=== PATIENT | female | born 1955 | race Caucasian/White ===

== ENCOUNTER 2023-02-10 14:44 | Outpatient (CLI) | payer MEDICARE, SELFPAY ==
[2023-02-10 15:14] LABS: Kit Draw Collected
== END 2023-02-10 14:45 | disposition home or self-care (01) ==
LOC: ANHGOSHLAB 14:46
PROVIDERS: PCP Family Medicine; Visit Provider Family Medicine
DX: R35.0 Frequency of micturition (principal)
CPT/HCPCS: 36415

== ENCOUNTER 2024-09-09 09:19 | Outpatient (CLI) | payer MEDICARE, SELFPAY ==
--- NOTE | ~2024-09-09 | MM_ITS ---
EXAMINATION: MM screening donna BI w dipak HISTORY: Screening TECHNIQUE: Craniocaudal and mediolateral oblique 3-D tomosynthesis images were obtained and synthetic 2-D images were generated. CAD analysis was submitted and interpreted. COMPARISON: No prior mammogram is available for comparison at this institution. BREAST PARENCHYMAL COMPOSITION: Not dense: There are scattered areas of fibroglandular density. FINDINGS: There is no evidence of suspicious mass, calcification, or architectural distortion to sugg est malignancy in either breast. There has been no suspicious interval change. IMPRESSION: 1. No mammographic evidence of malignancy. 2. Recommend routine screening mammography in one year. BI-RADS Category 1: Negative Reviewed, dictated and finalized at location A.
--- NOTE | ~2024-09-09 | DEXA_ITS ---
Bone Density Report Name: JOSE ALEJANDRO SHEA Age: 69 Sex: Female Ethnicity: White Date of : 1955 Indication: postmenopausal; screening for osteoporosis; Referring Provider: LEIA JONES Study: Bone densitometry was performed. Exam Date: September 09, 2024 Accession number: [id number] Bone Density: Region BMD T-score Z-score Classification AP Spine(L1-L4) 0.967 -0.7 1.5 Normal Femoral Neck (Left) 0.646 -1.8 0.1 Osteopenia Total Hip (Left) 0.754 -1.5 0.0 Osteopenia Femoral Neck (Right) 0.682 -1.5 0.4 Osteopenia Total Hip (Right) 0.739 -1.7 -0.1 Osteopenia Total Hip Mean 0.746 -1.6 -0.1 Osteopenia World Health Organization criteria for BMD impression classify patients as: Normal (T-score at or above -1.0), Osteopenia (T-score between -1.0 and -2.5), or Osteoporosis (T-score at or below -2.5). 10-year Fracture Risk(1): Major Osteoporotic Fracture 10% Hip Fracture 2.1% Reported Risk Factors: [place] (), Neck BMD=0.646, BMI=21.8 (1) FRAX(R) Version 3.08. Fracture probability calculated for an untreated patient. Fracture probability may be lower if the patient has received treatment. Clinical Information Provided by Patient: Has used the following medications: Vitamin D Patient maximum height was 63 Menopause Age: 46 Drinks caffeinated beverages Onset of menses at age 11 Number of children 4 Impression: The patient has low bone mass, based on the Left Femoral Neck T-score. The patient has an estimated ten-year risk of hip fracture of 2.1% and an estimated ten-year risk of major fracture of 10%, based on the WHO FRAX algorithm. Discussion: BONE DENSITY IS LOW AT ONE OR MORE SKELETAL SITES. This patient's lowest T-score is low at one or more skeletal sites. It meets the World Health Organization's (WHO) criteria for ?low bone mass? (T-score between -1.0 and -2.5). The patient's 10-year risk of fracture as calculated by FRAX is less than the threshold where pharmacological therapy is recommended by the National Osteoporosis Foundation (NOF). However, all treatment decisions require clinical judgment and consideration of individual patient factors, including patient preferences, comorbidities, previous drug use, risk factors not captured in the FRAX model (e.g., frailty, falls, vitamin D deficiency, increased bone turnover, interval significant decline in bone density) and possible under or overestimation of fracture risk by FRAX. The patient should follow a healthful lifestyle (good nutrition with adequate calcium and vitamin D, and appropriate weight-bearing exercise). Follow-Up: Consider repeating this study in 2 to 3 years to reassess this patient's status, or sooner if there is some new clinical indication. Reported by: RUBINA on 09/09/2024 10:01:00 AM. Reviewed, dictated and finalized at location A.
--- OUTSIDE RECORDS SUMMARY | 2024-09-10 11:29 | XMS_ITS | Continuity of Care Document ---
Author Organization [facility] Address [address] [place] [address] [address] [place] [address] Phone Care Team Providers Care Pace Analyst Name Role Phone Brian Bucio Unavailable Unavailable Procedures Procedure Date Office/outpatient Visit, Est Eye Exam Established Pt Advance Directives Directive Yes / No Effective Date File Name No Information Encounters Encounter Description Practice Location Reason(s) For Visit Diagnoses Date Provider Providers Copied on Encounter Office/outpa tient Visit, Est [facility], [id number] [place] [address] [address], [place], [place], [id number], [place] tel:[phone] [facility] No Information Oct-1 5-200 8 Krishnasamy Brian. [facility] [address], [place], [place], [facility], [place]. tel:[phone] [facility], [address] [place] [address] [address], [place], [place], [id number], [place] tel:[phone] [facility] No Information Oct-0 2-200 8 Pearson OD Hari. [address] [facility] , [address], [place], [address], [place]. tel:[phone] [facility], [address] [place] [address] [address], [place], [place], [id number], [place] tel:[phone] [facility] No Information Sep-0 4-200 8 Krishnasamy Brian. [address] [facility] [place] [address], [place], [place], [facility], [place]. tel:[phone] Referring Provider: Blaze Bertrand OD, [address] [facility], [place], [address]. tel:[phone] Family History Family Member Type Diagnosis Age [...]
--- OUTSIDE RECORDS SUMMARY | 2024-09-10 11:29 | XMS_ITS | Clinical Summary ---
Author Organization [facility] Address [address] [place] [address] Care Team Providers Care Business And Marketing Teacher Name Role Phone Tiarra Cooper MD Primary Care Provider [phone] Source Comments [facility],non-owned Affiliates and Associated Physician Practices is amultiple site organization consisting of ambulatory clinics and hospital sitesin [place], [place], [place] and [place]. This disclosure is being madepursuant to the Care Everywhere program and may not contain all information available regarding this patient. Last updated 18.[facility] Allergies Active Allergy Reactions Criticality Noted Date Comments Penicillins Rash Medium 08/09/2015 Sulfa Drugs Rash Medium 08/09/2015 Medications * Be aware that medications may not be up to date on this document. Alwaysverify current medications with the patient. levothyroxine (SYNTHROID) 88 MCG tablet Take 1 tablet by mouth daily before breakfast 30 tablet 5 8 Active alendronate (FOSAMAX) 70 MG tablet 1 tablet every 7 days before meal 15 tablet 3 8 Active metoprolol succinate XL 24hr (TOPROL XL) 25 MG tablet Take 1 tablet by mouth once daily 90 tablet 3 8 Active vitamin D, ergocalciferol, (DRISDOL) 33681 UNITS capsule Take 1 capsule by mouth every 7 days 8 capsule 8 Active levothyroxine (SYNTHROID) 88 MCG tablet TAKE 1 TABLET BY MOUTH ONCE DAILY BEFORE BREAKFAST 30 tablet 5 9 Active Active Problems Problem Noted Date Diagnosed Date Hypothyroid Osteoporosis HTN (hypertension) Family History Medical History Relation Name Comments NC<55(male) Father Diabetes Maternal Grandfather Cancer - Breast Maternal Grandmother NC<65(female) Maternal Grandmother Cancer - Prostate Maternal Uncle Diabetes Mother Hypertension Mother Cancer - Breast Paternal Aunt Cancer - Other Paternal Uncle Hypertension Sister 2 Relation Name Status Comments Brother Alive Father (Age 84) heart emi ck Maternal Grandfather Maternal Grandmother Maternal Uncle Mother Alive Paternal Aunt Paternal Uncle Sister 1 Alive Sister 2 Social History Tobacco Use Types Packs/Day Years Used Date Smoking Tobacco: Never Smokeless Tobacco: Never Alcohol Use Standard Drinks/Week Comments Yes 5 (1 standard drink = 0.6 oz pur e alcohol) Comments No Sex and Gender Information Value Date Recorded Sex Assigned at Not on file Legal Sex 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 Gender Identity Not on file Sexual Orientation Not on file 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 Not on file Not on file Not on file Last Filed Vital Signs Vital Sign Reading Time Taken Comments Blood Pressure 110/80 02/01/2018 10:32 AM CDT Pulse 70 02/01/2018 10:32 AM CDT Temperature 36.6 C (97.9 F) 02/01/2018 10:32 AM CDT Respiratory Rate 18 02/01/2018 10:32 AM CDT Oxygen Saturation 99% 02/01/2018 10:32 AM CDT Inhaled Oxygen Concentration - - Weight 51.4 kg (113 lb 6.4 oz) 02/01/2018 10:32 AM CDT Height 160 cm (5' 2.99 ) 02/01/2018 10:32 AM CDT Body Mass Index 20.09 02/01/2018 10:32 AM CDT Plan of Treatment Health Maintenance Due Date Last Done Comments BONE DENSITY TESTING 1955 COLOGUARD (AGES 45-75) - COL ON CA SCREENING [address] COLONOGRAPHY - COLON CA SCREENING 1955 FIT - COLON CA SCREENING 1955 FLEX SIG - COLON CA SCREENING 1955 DTAP/TDAP/TD VACCINES (1 - Tdap) 02/07/1972 PNEUMOCOCCAL VACCINE 50+ (1 of 1 - PCV) 2003 ZOSTER VACCINE (1 of 2) 2003 MAMMOGRAM 12/01/2018 12/01/2016 (Declined) LIPID TESTING 02/04/2023 02/04/2018, 04/28/2017, 10/20/2015 COVID-19 VACCINE ( - 2023-2 5 season) 2024 DEPRESSION SCREENING 05/11/2024 INFLUENZA VACCINE (Season Ended) 2025 COLONOSCOPY - COLON CA SCREENING 12/01/2026 12/01/2016 (Declined) Colorectal Cancer Screening 12/01/2026 Respiratory Syncytial Virus (RSV) Vaccine Pt: or over 60 yrs (1 - 1-dose 75+ series) 02/07/2028 HEPATITIS C SCREENING Completed 02/04/2018 HEPATITIS B VACCINE Aged Out No longe r eligible based on patient's age to complete this topic HIB VACCINE Aged Out No longer eligi ble based on patient's age to complete this topic HPV VACCINE Aged Out No longer eligi ble based on patient's age to complete this topic MENINGOCOCCAL (Group B) VACCINE SHARED DECISION-MAKING Aged Out No longer eligible based on patient's age to complete this topic MENINGOCOCCAL GROUPS A/C/Y/W VACCINE Aged Out No longer eligible b ased on patient's age to complete this topic Procedures Procedure Name Priority Date/Time Associated Diagnosis Comments LIPID PROFILE 02/04/2018 7:41 AM CDT HEPATITIS C AB W/RFLX TO HCV RNA QN PCR 02/04/2018 7:41 AM CDT from Last 3 Months or Most Recently Relevant to Health Maintenance Results * HEPATITIS C AB W/RFLX TO HCV RNA QN PCR (02/04/2018 7:41 AM CDT) Hepatitis C Antibody NON-REACTI VE NON-REACT KERRY [facility] Signal to Cut-Off 0.01 <1.00 [facility] Comment: Test Performed at: [facility] [address] [place] [address] TEJA BELL DO,MPH 02/04/2018 7:41 AM CDT 02/04/2018 7:43 AM CDT us Tiarra Cooper MD LAB - CHEMISTRY ORDERABLES [facility] [address] [place] [address] * LIPID PROFILE (02/04/2018 7:41 AM CDT) Cholesterol 184 <200 mg/dL [facility] HDL Cholesterol 66 >50 mg/dL [facility] Triglycerides 104 <150 mg/dL [facility] LDL Calculated 98 mg/dL (calc) [facility] Comment: Reference range: <100 Desirable range <100 mg/dL for primary prevention; <70 mg/dL for patients with CHD or diabetic patients with > or = 2 CHD risk factors. LDL-C is now calculated using the Ramy-Florencio calculation, which is a validated novel method providing better accuracy than the Friedewald equation in the estimation of LDL-C. Ramy SS et al. SRINATH. 2013;310(45): 4045-8124 (http://education.[employer].ID90T/faq/GFQ009) CHOL/HDLC RATIO 2.8 <5.0 (calc) [facility] Non HDL Cholesterol 118 <130 mg/dL (calc) [facility] Comment: For patients with diabetes plus 1 major ASCVD risk factor, treating to a non-HDL-C goal of <100 mg/dL (LDL-C of <70 mg/dL) is considered a therapeutic option. Test Performed at: [facility] [address] [place] [address] TEJA BELL DO,MPH 02/04/2018 7:41 AM CDT 02/04/2018 7:43 AM CDT Tiarra Cooper MD LAB - CHEMISTRY ORDERABLES [facility] [address] [place] [address] from Last 3 Months or Most Recently Relevant to Health Maintenance Insurance [employer] Care Teams Business And Marketing Teacher Relationship Specialty [place] [id number] [address] PCP - General Internal Medicine 08/09/15
== END 2024-09-09 09:20 | disposition home or self-care (01) ==
LOC: ANHIMG 09:22
PROVIDERS: PCP Family Medicine; Visit Provider Family Medicine
DX: Z12.31 Encounter for screening mammogram for malignant neoplasm of breast (principal); N95.9 Unspecified menopausal and perimenopausal disorder; M85.852 Other specified disorders of bone density and structure, left thigh; M85.851 Other specified disorders of bone density and structure, right thigh
CPT/HCPCS: 77063; 77067; 77080

== ENCOUNTER 2025-02-22 17:22 | Emergency (ER) | payer MEDICARE, SELFPAY ==
--- OUTSIDE RECORDS SUMMARY | 2008-02-23 09:30 | XMS_ITS | Continuity of Care Document ---
Author Organization [facility] Address [address] [place] [address] [address] [place] [address] Phone Care Team Providers Care Director Of Agronomy Name Role Phone Brian Bucio Unavailable Unavailable Procedures Procedure Date Office/outpatient Visit, Est Eye Exam Established Pt Advance Directives Directive Yes / No Effective Date File Name No Information Encounters Encounter Description Practice Location Reason(s) For Visit Diagnoses Date Provider Providers Copied on Encounter Office/outpa tient Visit, Est [facility], [id number] [place] [address] [address], [place], [place], [id number], [place] tel:[phone] [facility] No Information Oct-1 5-200 8 Krishnasamy Brian. [facility] [address], [place], [place], [facility], [place]. tel:[phone] [facility], [address] [place] [address] [address], [place], [place], [id number], [place] tel:[phone] [facility] No Information Oct-0 2-200 8 Pearson OD Hari. [address] [facility] , [address], [place], [address], [place]. tel:[phone] [facility], [address] [place] [address] [address], [place], [place], [id number], [place] tel:[phone] [facility] No Information Sep-0 4-200 8 Krishnasamy Brian. [address] [facility] [address], [place], [address], [place]. tel:[phone] Referring Provider: Blaze Bertrand OD, [address] [facility], [place], [address]. tel:[phone] Family History Family Member Type Diagnosis Age At Onset No Information Payers Payer name Insurance type Covered republican ID Authoriza tion(s) No Information Social History Type Description Quantity Date Captured Comments Sex Female Smoking Status No Information Chief Complaint And Reason For Visit No Information Reason For Referral Reason For Referral No Information History Of Present Illness Encounter Date Complaint History Of Prese nt Illness No Information Functional Status Date Functional Assessmen t No Information Instructions Date Instruction Additional Infor mation No Information Assessments Type Assessment Date No Information Patient Care Teams Name Effective Dates (start - stop) Status Members No Information
--- OUTSIDE RECORDS SUMMARY | 2008-02-23 09:30 | XMS_ITS | Continuity of Care Document ---
Author Organization [facility] Address [address] [place] [address] [address] [place] [address] Phone Care Team Providers Care Health Safety Manager Name Role Phone Brian Bucio Unavailable Unavailable Procedures Procedure Date Office/outpatient Visit, Est Eye Exam Established Pt Advance Directives Directive Yes / No Effective Date File Name No Information Encounters Encounter Description Practice Location Reason(s) For Visit Diagnoses Date Provider Providers Copied on Encounter Office/outpa tient Visit, Est [facility], [id number] [place] [address] [address], [place], [place], [id number], [place] tel:[phone] [facility] No Information Oct-1 5-200 8 Krishnasamy Brian. [facility] [address], [place], [place], [facility], [place]. tel:[phone] [facility], [address] [place] [address] [address], [place], [place], [id number], [place] tel:[phone] [facility] No Information Oct-0 2-200 8 Pearson OD Hari. [address] [facility] , [address], [place], [address], [place]. tel:[phone] [facility], [address] [place] [address] [address], [place], [place], [id number], [place] tel:[phone] [facility] No Information Sep-0 4-200 8 Krishnasamy Brian. [address] [facility] [address], [place], [address], [place]. tel:[phone] Referring Provider: Blaze Bertrand OD, [address] [facility], [place], [address]. tel:[phone] Family History Family Member Type Diagnosis Age At Onset No Information Payers Payer name Insurance type Covered alliance party ID Authoriza tion(s) No Information Social History [...]
--- NOTE | ~2025-02-22 | XR_ITS ---
XR hand LT min 3V INDICATION: Pain index finger and 2nd MCP after fall . COMPARISON: None. FINDINGS: Frontal, lateral, and oblique views of the left hand demonstrate no acute fracture or dislocation. Severe degenerative changes with joint space narrowing and subchondral cystic changes. 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 IMPRESSION: No acute fracture or dislocation. Reviewed, dictated and finalized at location S.
[2025-02-22 17:32] VITALS: BP 139/71; PULSE 83; RESP 18; TEMP 36.7; O2SAT 100
--- NOTE | 2025-02-22 17:50 | ED_ITS ---
HPI - Extremity Injury (Upper) General Chief Complaint: Extremity Injury, Upper Stated Complaint: Fall / LT Hand Injury Time Seen by Provider: 02/22/25 17:50 Source: patient Mode of arrival: ambulatory Limitations: no limitations History of Present Illness HPI narrative: 70 yo F presents with c/o pain and swelling to L 2nd finger. Pt tripped today and home and fell forward. Put hands out to catch herself. Denies hitting head. Was able to get up on her own. All systems reviewed and negative except as noted above. Related Data Allergies Allergy/AdvReac Type Severity Reaction Status Date / Time Penicillins Allergy Unknown Unknown Verified 02/22/25 17:35 Sulfa (Sulfonamide Allergy Unknown unknown Verified 02/22/25 17:35 Antibiotics) sulfur dioxide Allergy Unknown Unknown Verified 02/22/25 17:35 [facility] Past Medical History Medical History Juarez angioma Hypertension Anemia Hypothyroidism Surgical History Surgical History History of superficial keratectomy 10/09/23 left eye, Dr. Plummer in [facility] Family History Family History Mother Hypertension Family history of diabetes mellitus in first degree relative Family history of obesity Family history of mental disorder, Onset Age: 86 Sibling Hypertension Grandparent Family history of malignant neoplasm of breast Father Family history of cardiovascular disease Social History Social History Smoking status: Never smoker Alcohol intake: current Alcohol use details: occasionally Substance use: never Substance use type: does not use Do You Feel Safe in your Home?: Yes Lack of Transportation: No Lack of Food: Never True Current Housing: I Have Housing Concerned About Future Housing: No Difficulty Paying Gas/Electric Bills: No Difficulty Paying for Meds: No Currently Unemployed: No Education: Bachelor's Degree Difficulty w/ Childcare or Family Care: No Comments At time of signature, agree with nursing past medical, surgical, social and family history. There is no relevant family history pertinent to the presenting complaint. Exam Narrative: GENERAL: This is a well-nourished, well-developed patient, in no apparent distress. HEAD: normocephalic, atraumatic. EYES: PERRL. Sclera clear/white. Vision is grossly intact. EARS: External ears normal NOSE: External nose normal NECK: Neck supple, non-tender without lymphadenopathy, masses or thyromegaly. CARDIOVASCULAR: Regular rate and rhythm without murmurs, gallops, or rubs. RESPIRATORY: Clear to auscultation. Breath sounds equal bilaterally. No wheezes, rales, or rhonchi. SKIN: warm, Dry, intact with no suspicious lesions or rash, good texture and turgor. NEURO: awake, alert, and oriented to person, place and time. There were no obvious focal neurologic abnormalities. EXTREMITIES: Tenderness, swelling, deformity to left index finger proximal phalanx Course Course Level of Care: Express Care Visit Vital Signs Vital signs: Vital Signs Temperature 36.7 C 02/22/25 17:32 Pulse Rate 83 02/22/25 17:32 Respiratory Rate 18 02/22/25 17:32 Blood Pressure 139/71 02/22/25 17:32 Pulse Oximetry 100 02/22/25 17:32 Oxygen Delivery Room Air 02/22/25 17:32 Temperature 36.7 C 02/22/25 17:32 Pulse Rate 83 02/22/25 17:32 Respiratory Rate 18 02/22/25 17:32 Blood Pressure 139/71 02/22/25 17:32 Pulse Oximetry 100 02/22/25 17:32 Oxygen Delivery Room Air 02/22/25 17:32 reviewed MDM - Extremity Injury (Upper) MDM Narrative Medical decision making narrative: discussed x-ray results with patient. Patient placed in finger splint. Neurovascularly intact. Decreased range of motion due to finger fracture.Recommend follow up with Dr. Salvador. Differential Diagnosis Differential diagnosis: Likely finger sprain, dislocation of finger, fracture of hand and other ( Finger fracture) Imaging Data My impression: Agree with radiologist Radiologist's impression: ADDENDUM There is a nondisplaced fracture at the base of the proximal phalanx of the second finger. Addendum Dictated By: Albaro Khanna MD Addendum Signed By: <Electronically signed by Albaro Khanna MD in [place]> 02/22/251838 Addendum Cosigned By: DD/ TD/TT: / XR hand LT min 3V INDICATION: Pain index finger and 2nd MCP after fall . COMPARISON: None. FINDINGS: Frontal, lateral, and oblique views of the left hand demonstrate no acute fracture or dislocation. Severe degenerative changes with joint space narrowing and subchondral cystic changes. 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 IMPRESSION: No acute fracture or dislocation. Discharge Plan Discharge Clinical Impression: Closed fracture of proximal phalanx of left index finger Patient Disposition: Home Condition: Stable Instructions: Finger Fracture (ED) Additional Instructions: The x-ray of your left hand shows a fracture to your left index finger. Take Tylenol or ibuprofen every 6-8 hours as needed for pain. Elevate when at rest. Apply ice as needed for pain. Call tomorrow morning and schedule follow-up. Patient Language: Portuguese Prescriptions: No Action levothyroxine 75 mcg tablet 75 mcg PO DAILY Qty: 90 3RF Follow-up/Referrals: Ibeth Salvador MD [Physician, Plastic Surgery] Referral Note: call tomorrow morning and schedule follow up appointment for fracture care Soledad Amaro MD [Primary Care Provider, Family Practice] Time of Disposition: 18:48
--- OUTSIDE RECORDS SUMMARY | 2025-02-22 17:54 | XMS_ITS | Clinical Summary ---
Author Organization [facility] Address [address] [place] [address] Care Team Providers Care Hemmer Chainstitch Name Role Phone Tiarra Cooper MD Primary Care Provider [phone] [facility],non-owned Affiliates and Associated Physician Practices is amultiple site organization consisting of ambulatory clinics and hospital sitesin [place], [place], [place] and [place]. This disclosure is being madepursuant to the Care Everywhere program and may not contain all information available regarding this patient. Last updated 18.[facility] Allergies Active Allergy Reactions Criticality Noted Date [...] 3 8 Active vitamin D, ergocalciferol, (DRISDOL) 73938 UNITS capsule Take 1 capsule by mouth every 7 days 8 capsule 8 Active levothyroxine (SYNTHROID) 88 MCG tablet TAKE 1 TABLET BY MOUTH ONCE DAILY BEFORE BREAKFAST 30 tablet 5 9 Active Active Problems Problem Noted Date Diagnosed Date Hypothyroid Osteoporosis HTN (hypertension) Family History Medical History Relation Name Comments [place]<55(male) Father Diabetes Maternal Grandfather Cancer - Breast Maternal Grandmother CA<65(female) Maternal Grandmother Cancer - Prostate Maternal Uncle [...] on file Legal Sex 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 Gender Identity Not on file Sexual Orientation Not on file 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 Not on file Not on file [...] 10:32 AM CDT Height 160 cm (5' 2.99) 02/01/2018 10:32 AM CDT Body Mass Index [...] (Declined) LIPID TESTING 02/04/2023 02/04/2018, 04/28/2017, 10/20/2015 DEPRESSION SCREENING 05/11/2024 COVID-19 VACCINE (1 - 2023-2 5 season) 2025 INFLUENZA VACCINE (#1) 2025 COLONOSCOPY - COLON CA SCREENING 12/01/2026 [...] 0.01 <1.00 [facility] Comment: Test Performed at: [facility] [address] [place] [address] TEJA BELL DO,MPH 02/04/2018 7:41 AM CDT 02/04/2018 7:43 AM CDT Tiarra Cooper MD LAB - CHEMISTRY ORDERABLES Fin [facility] [id number] [place] [address] * LIPID PROFILE (02/04/2018 7:41 AM CDT) [...] of LDL-C. Ramy SS et al. SRINATH. 2013;310(48): 2639-7090 (http://education.Gamify.Quikly/faq/GTZ271) CHOL/HDLC RATIO 2.8 <5.0 (calc) [facility] Non HDL Cholesterol 118 <130 mg/dL (calc) [facility] Comment: For patients with diabetes plus 1 major ASCVD risk factor, treating to a non-HDL-C goal of <100 mg/dL (LDL-C of <70 mg/dL) is considered a therapeutic option. Test Performed at: [facility] [address] [place] [address] TEJA BELL DO,MPH 02/04/2018 7:41 AM CDT 02/04/2018 7:43 AM CDT Tiarra Cooper MD LAB - CHEMISTRY ORDERABLES [facility] al Result [facility] [address] [place] [address] from Last 3 Months or Most Recently Relevant to Health Maintenance Insurance [employer] Care Teams Hemmer Chainstitch Relationship Specialty [place] [id number] [address] PCP - General Internal Medicine 08/09/15
== END 2025-02-22 18:51 | disposition home or self-care (01) ==
PROVIDERS: Emergency Provider Nurse Practitioner Family; PCP Family Medicine
DX: S62.641A Nondisplaced fracture of proximal phalanx of left index finger, initial encounter for closed fracture (principal); W19.XXXA Unspecified fall, initial encounter; I10 Essential (primary) hypertension; E03.9 Hypothyroidism, unspecified
CPT/HCPCS: 29130; 73130; 99214; G0463

== ENCOUNTER 2025-03-07 10:44 | Outpatient (CLI) | payer MEDICARE, SELFPAY ==
--- NOTE | ~2025-03-07 | XR_ITS ---
EXAMINATION: XR finger 2nd LT min 2V, 03/07/2025 11:00 CDT HISTORY: S62.641A - Nondisplaced fracture of proximal phalanx of l... COMPARISON: No comparisons available. Findings: Slightly displaced fracture proximal aspect of the proximal phalanx. Severe degenerative changes. Soft tissues unremarkable. Impression: Healing fracture Reviewed, dictated and finalized at location P. Impression: Healing fracture
--- OUTSIDE RECORDS SUMMARY | 2025-03-07 12:27 | XMS_ITS | Clinical Summary ---
Author Organization [facility] Address [address] [place] [address] Care Team Providers Care Freight Car Cleaner Delta System Name Role Phone Tiarra Cooper MD Primary Care Provider [phone] Source Comments [facility],non-owned Affiliates and Associated Physician Practices is amultiple site organization consisting of ambulatory clinics and hospital sitesin [place], [place], [place] and [place]. This disclosure is being madepursuant to the Care Everywhere program and may not contain all information available regarding this patient. Last updated 18.[facility] Allergies Active Allergy Reactions Criticality Noted Date [...] 3 8 Active vitamin D, ergocalciferol, (DRISDOL) 22578 UNITS capsule Take 1 capsule by mouth every 7 days 8 capsule 8 Active levothyroxine (SYNTHROID) 88 MCG tablet TAKE 1 TABLET BY MOUTH ONCE DAILY BEFORE BREAKFAST 30 tablet 5 9 Active Active Problems Problem Noted Date Diagnosed Date Hypothyroid Osteoporosis HTN (hypertension) Family History Medical History Relation Name Comments [place]<55(male) Father Diabetes Maternal Grandfather Cancer - Breast Maternal Grandmother SC<65(female) Maternal Grandmother Cancer - Prostate Maternal Uncle [...] on file 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 Ramy SS et al. SRINATH. 2013;310(81): 4332-8825 (http://education.Chamson Group.Public Solution/faq/GQV550) CHOL/HDLC RATIO 2.8 <5.0 (calc) [facility] Non HDL Cholesterol 118 <130 mg/dL (calc) [facility] Comment: For patients with diabetes plus 1 major ASCVD risk factor, treating to a non-HDL-C goal of <100 mg/dL (LDL-C of <70 mg/dL) is considered a therapeutic option. Test Performed at: [facility] [address] [place] [address] TEJA BELL DO,MPH 02/04/2018 7:41 AM CDT 02/04/2018 7:43 AM CDT Tiarra Cooper MD LAB - CHEMISTRY ORDERABLES [facility] al Result [facility] [address] [place] [address] from Last 3 Months or Most Recently Relevant to Health Maintenance Insurance [employer] Care Teams Freight Car Cleaner Delta System Relationship Specialty [place] [address] [address] PCP - General Internal Medicine 08/09/15
== END 2025-03-07 10:45 | disposition home or self-care (01) ==
PROVIDERS: PCP Family Medicine; Visit Provider Plastic Surgery
DX: S62.641D Nondisplaced fracture of proximal phalanx of left index finger, subsequent encounter for fracture with routine healing (principal); X58.XXXD Exposure to other specified factors, subsequent encounter
CPT/HCPCS: 73140

== ENCOUNTER 2025-04-04 11:14 | Outpatient (CLI) | payer MEDICARE, SELFPAY ==
--- OUTSIDE RECORDS SUMMARY | 2025-04-04 12:59 | XMS_ITS | Clinical Summary ---
Author Organization [facility] Address [address] [facility] [place] [address] Care Team Providers Care Materials Coordinator Name Role Phone Tiarra Cooper MD Primary Care Provider [phone] Source Comments [facility],non-owned Affiliates and Associated Physician Practices is amultiple site organization consisting of ambulatory clinics and hospital sitesin [place], [place], [place] and [place]. This disclosure is being madepursuant to the Care Everywhere program and may not contain all information available regarding this patient. Last updated 18.[facility] Allergies Active Allergy Reactions Criticality Noted Date [...] 3 8 Active vitamin D, ergocalciferol, (DRISDOL) 89886 UNITS capsule Take 1 capsule by mouth every 7 days 8 capsule 8 Active levothyroxine (SYNTHROID) 88 MCG tablet TAKE 1 TABLET BY MOUTH ONCE DAILY BEFORE BREAKFAST 30 tablet 5 9 Active Active Problems Problem Noted Date Diagnosed Date Hypothyroid Osteoporosis HTN (hypertension) Family History Medical History Relation Name Comments [place]<55(male) Father Diabetes Maternal Grandfather Cancer - Breast Maternal Grandmother [place]<65(female) Maternal Grandmother Cancer - Prostate Maternal Uncle [...] on file 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 Gender Identity Not on file Sexual Orientation Not on file 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 Ramy SS et al. SRINATH. 2013;310(74): 2166-3294 (http://education.ChinaCache.American Prison Data Systems/faq/NFK475) CHOL/HDLC RATIO 2.8 <5.0 (calc) [facility] Non HDL Cholesterol 118 <130 mg/dL (calc) [facility] Comment: For patients with diabetes plus 1 major ASCVD risk factor, treating to a non-HDL-C goal of <100 mg/dL (LDL-C of <70 mg/dL) is considered a therapeutic option. Test Performed at: [facility] [address] [place] [address] TEJA BELL DO,MPH 02/04/2018 7:41 AM CDT 02/04/2018 7:43 AM CDT Tiarra Cooper MD LAB - CHEMISTRY ORDERABLES [facility] al Result [facility] [address] [place] [address] from Last 3 Months or Most Recently Relevant to Health Maintenance Insurance [employer] Care Teams Materials Coordinator Relationship Specialty [place] [address] [address] PCP - General Internal Medicine 08/09/15
[2025-04-04 20:30] LABS: Thyroid Stimulating Hormone 5.020 uIU/mL (0.465-4.680)
== END 2025-04-04 11:15 | disposition home or self-care (01) ==
LOC: ANHGOSHLAB 11:14
PROVIDERS: PCP Family Medicine; Visit Provider Family Medicine
DX: E03.9 Hypothyroidism, unspecified (principal)
CPT/HCPCS: 36415; 84443

== ENCOUNTER 2025-04-18 09:01 | Outpatient (CLI) | payer MEDICARE, SELFPAY ==
--- NOTE | ~2025-04-18 | XR_ITS ---
EXAMINATION: XR finger 2nd LT min 2V, 04/18/2025 9:10 DOOR HANGER HISTORY: S62.641A - Nondisplaced fracture of proximal phalanx of l... COMPARISON: No comparisons available. Findings: Slightly angulated minimally displaced fracture proximal aspect proximal phalanx. Severe degenerative changes of the distal and proximal interphalangeal joints. Soft tissues unremarkable. Impression: Fracture detailed above Reviewed, dictated and finalized at location P. HANGER Impression: Fracture detailed above
== END 2025-04-18 09:02 | disposition home or self-care (01) ==
PROVIDERS: PCP Family Medicine; Visit Provider Plastic Surgery
DX: S62.641A Nondisplaced fracture of proximal phalanx of left index finger, initial encounter for closed fracture (principal); X58.XXXA Exposure to other specified factors, initial encounter
CPT/HCPCS: 73140